=== PATIENT | female | born 1970 | race Caucasian/White ===

== ENCOUNTER 2020-01-31 13:24 | Emergency (ER) | payer OTHER, SELFPAY ==
[2020-01-31 14:53] VITALS: BP 118/72; PULSE 80; RESP 18; TEMP 36.1; O2SAT 99; BMI 43.9
--- NOTE | 2020-01-31 16:04 | ED.SKABFB ---
HPI - Skin/Abscess/Foreign Bdy General Chief complaint: Skin/Abscess/Foreign Body Stated complaint: lumps Time Seen by Provider: 01/31/20 15:27 Source: patient Mode of arrival: ambulatory Limitations: no limitations History of Present Illness HPI narrative: 50 y/o female with history of asthma, hypothyroidism, chronic back pain, s/p cervical disc fusion, hx abscess 2/2 MRSA presents with tender boil to upper right buttocks that started 4 days ago. She also has several small ones in her right underarm. No fever or chills at home. She was able to express a small amount of pus out of boil on her buttocks. She has been using warm compresses. MD complaint: abscess/boil Onset (ago): day(s) (4) Tetanus up to date: yes Location: RUE and buttocks Severity: moderate Quality: aching Pain Consistency: constant Relieving factors: none Exacerbating factors: palpation and movement Context: none Associated symptoms: denies other symptoms Treatments prior to arrival: bandages and attempted to drain pus at home Related Data Previous Rx's Medication Instructions Recorded clindamycin HCl 300 mg PO Q6H #42 cap 01/31/20 Allergies Allergy/AdvReac Type Severity Reaction Status Date / Time celecoxib [Celebrex] Allergy Unknown Unknown Verified 01/31/20 14:51 gabapentin [GABAPENTIN] Allergy Unknown UNKNOWN Verified 01/31/20 14:51 oxaprozin Allergy Unknown Unknown Verified 01/31/20 14:51 Penicillins [PENICILLINS] Allergy Unknown UNKNOWN Verified 01/31/20 14:51 Sulfa (Sulfonamide Allergy Unknown Unknown Verified 01/31/20 14:51 Antibiotics) Codeine Phosphate Allergy Unknown Unknown Uncoded 01/31/20 14:51 Review of Systems Review of Systems: Constitutional: No Fever, No Chills Cardiovascular: No Chest Pain, No SOB Respiratory: No Cough, No Sputum, No Wheezing, No dyspnea Gastrointestinal: + Nausea, No Vomiting, No Diarrhea, No abdominal Pain Musculoskeletal: No joint pain, No Myalgias Skin: + Skin Lesions, No rash Neuro:+ Headache Heme/Lymph: No Bruising, No Lymphadenopathy PMFSH Past Medical History Attestation statement: The following information was validated with the patient. Medical History Carpal tunnel syndrome on both sides Cervical vertebral fusion Hypothyroid Surgical History (Updated 01/31/20 @ 14:56 by Lila Nagy) History of bladder suspension procedure Social History Social History Smoked in Last 30 Days: No Substance Use Type: Marijuana Advance Directives: No Advance Directives Information Provided: No Physical Exam Vital Signs: Vital Signs: Last Vital Signs Temp 96.9 F 01/31/20 14:53 Pulse 80 01/31/20 14:53 Resp 18 01/31/20 14:53 BP 118/72 01/31/20 14:53 Pulse Ox 99 01/31/20 14:53 Body Mass Index 43.9 Appearance: Alert. Oriented X3. No acute distress. HEENT: normal inspection Respiratory: No respiratory distress. Skin: Skin warm and dry. Normal skin color. Normal skin turgor. No rashes. Extremities: right axilla with multiple small tender nodules, firm and erythematous, <1cm. no flutuance. Back: upper right buttock with 6cm area of erythema, warmth and tenderness, central pustule wtih fluctuance. Neuro: Oriented X 3. Non-focal Course Course Course Narrative: 50 y/o female with abscess to right buttock. Hx MRSA, will treat as such. right axilary area consistent with early small abscesses vs folliculitis, no need to I&D at this time. Will start on abx and have her come back in to 2 days for re-evaluation. Procedures Abscess I/D Site: other (right buttock) Side (if applicable): right Local Anesthetic: lidocaine 2% Technique: incised with blade Sent for culture/gram staining?: No Irrigation: Yes Packing used?: iodoform Complications: pain Discharge Plan Discharge Clinical Impression: Cellulitis Qualifiers: Site of cellulitis: buttock Qualified Code(s): L03.317 - Cellulitis of buttock Abscess of skin or subcutaneous tissue Qualifiers: Site of cutaneous abscess: buttock Qualified Code(s): L02.31 - Cutaneous abscess of buttock Patient Disposition: Home, Self-Care Instructions: Abscess Follow-up (ED), Abscess Incision and Drainage (DC) Additional Instructions: Come back to the ER in 2 day for re-evaluation of your would and for packing removal. Take Motrin and/or Tylenol as needed for pain. Use warm compresses several times per day. Prescriptions: New clindamycin HCl 300 mg capsule 300 mg PO Q6H Qty: 42 RF: 0
[2020-01-31] MEDS: Lidocaine HCl 2 % MPF 5 ML VIAL INFILTRATI (16:47)
== END 2020-01-31 16:53 | disposition home or self-care (01) ==
PROVIDERS: Emergency Provider Emergency Medicine Emergency Medical Services; PCP Internal Medicine
DX: L02.31 Cutaneous abscess of buttock (principal)
CPT/HCPCS: 10060; 99284

== ENCOUNTER 2020-02-02 08:28 | Emergency (ER) | payer OTHER, SELFPAY ==
[2020-02-02 08:40] VITALS: BP 131/89; PULSE 80; RESP 16; TEMP 36.8; O2SAT 96; BMI 42.0
--- NOTE | 2020-02-02 09:12 | ED_ITS ---
HPI - Recheck/Abnormal Lab/Rx General Chief Complaint: Wound/Laceration Stated Complaint: wound check Time Seen by Provider: 02/02/20 08:36 Source: patient Mode of arrival: ambulatory Limitations: no limitations History of Present Illness HPI narrative: 50-year-old female presenting to the ED for wound check after she was seen here on 01/31/2020 and had abscess I&D to right buttocks with packing placement placed on clindamycin due to allergic to penicillins. Reports still having mild pain although discharge is almost resolved. Denies any fevers, Chills, worsening pain, worsening swelling, worsening redness or worsening discharge. or any other symptoms complaints or concerns at this time. Reports she is currently taking the clindamycin as prescribed. Related Data Previous Rx's Medication Instructions Recorded clindamycin HCl 300 mg PO Q6H #42 cap 01/31/20 Allergies Allergy/AdvReac Type Severity Reaction Status Date / Time celecoxib [Celebrex] Allergy Unknown Unknown Verified 01/31/20 14:51 gabapentin [GABAPENTIN] Allergy Unknown UNKNOWN Verified 01/31/20 14:51 oxaprozin Allergy Unknown Unknown Verified 01/31/20 14:51 Penicillins [PENICILLINS] Allergy Unknown UNKNOWN Verified 01/31/20 14:51 Sulfa (Sulfonamide Allergy Unknown Unknown Verified 01/31/20 14:51 Antibiotics) Codeine Phosphate Allergy Unknown Unknown Uncoded 01/31/20 14:51 Review of Systems Review of Systems: Yes all other systems are reviewed and are negative PMF Past Medical History Attestation statement: The following information was validated with the patient. Medical History Carpal tunnel syndrome on both sides Cervical vertebral fusion Hypothyroid Surgical History History of bladder suspension procedure Social History Social History Substance Use Type: Marijuana Advance Directives: No Advance Directives Information Provided: No Physical Exam Vital Signs: Vital Signs: Last Vital Signs Temp 98.2 F 02/02/20 08:40 Pulse 80 02/02/20 08:40 Resp 16 02/02/20 08:40 BP 131/89 02/02/20 08:40 Pulse Ox 96 02/02/20 08:40 Body Mass Index 42.0 vital signs have been reviewed as normal and appeared to be correct. Blood pressure normal. Heart rate normal. Respiration rate normal. Temperature normal. Oxygen saturation normal. Appearance: Alert. Oriented X3. No acute distress. Head: Normal external exam. Normocephalic. Eyes: PERRLA. EOMI. Conjunctiva and sclera normal. Eyelids normal. ENT: Pharynx normal. Uvula midline. Moist mucous membranes. Neck: Normal inspection. Neck supple. FROM. No adenopathy. No meningeal signs. CVS: Normal heart rate and rhythm. Heart sound normal. No murmurs noted. Pulses normal throughout. Respiratory: No respiratory distress. Painless inspiration. Breath sounds normal. No wheezes/rales/rhonchi noted. Chest nontender. No accessory muscle usage noted or decreased air movement noted. Back: No CVA tenderness. Full range of motion noted. Skin: To right buttocks wound noted with packing in place with mild surrounding erythema at margins. Mild serosanguineous drainage. No fluctuance or streaking noted. Appear healing. Otherwise the rest of the Skin warm and dry. Normal skin color. Normal skin turgor. No rashes/lacerations noted. Extremities: Extremities exhibit normal range of motion. Extremities nontender. Neuro: Oriented X 3. No motor deficit. No sensory deficit. Reflexes normal. Course Course Course Narrative: Packing removed no signs of worsening infection. Patient is still taking antibiotics. Instructed to return if any new or worsening symptoms follow-up with primary care provider patient understand and agree with the plan MDM - Recheck/Abnormal Lab/Rx Medical Records Attestation: I reviewed the patient's medical records. Discharge Plan Discharge Clinical Impression: Wound check, abscess Patient Disposition: Home, Self-Care Instructions: Abscess Follow-up (ED) Prescriptions: No Action clindamycin HCl 300 mg capsule 300 mg PO Q6H Qty: 42 RF: 0 Referrals: Suzanne Owens MD [Primary Care Provider] - 2 days Discharge Date/Time: 02/02/20 09:32 Print Language: Mauritanian
== END 2020-02-02 09:32 | disposition home or self-care (01) ==
PROVIDERS: Emergency Provider Internal Medicine; PCP Internal Medicine
DX: L02.31 Cutaneous abscess of buttock (principal); Z79.899 Other long term (current) drug therapy
CPT/HCPCS: 99283

== ENCOUNTER → 2020-10-21 15:36 | Outpatient (BNVA) | payer OTHER, SELFPAY | PROVIDERS: PCP Internal Medicine; Visit Provider Anesthesiology | DX: M51.36 Other intervertebral disc degeneration, lumbar region (principal); M47.16 Other spondylosis with myelopathy, lumbar region; M47.817 Spondylosis without myelopathy or radiculopathy, lumbosacral region; M46.1 Sacroiliitis, not elsewhere classified; M53.3 Sacrococcygeal disorders, not elsewhere classified | CPT/HCPCS: 99212 ==

== ENCOUNTER 2020-12-08 06:31 | Outpatient (REF) | payer OTHER, SELFPAY ==
--- NOTE | ~2020-12-08 | FL_ITS ---
EXAMINATION: XR FLUOROSCOPY WITH IMAGES CLINICAL INFORMATION: Sacrococcygeal disorder. COMPARISON: Fluoroscopy dated 10/22/2019. TECHNIQUE: Fluoroscopy performed by Dr. Michel Goodman. Fluoroscopy time: 0.1 minutes DAP: 1.80 Gycm2 Dose: 6.61 mGy Images: 2 FINDINGS: The submitted images show a needle tip situated in the vicinity of the inferior aspect of the right sacroiliac joint. There is contrast puddling adjacent to the needle tip. FL/FL guidance in treatment room IMPRESSION: Intraoperative fluoroscopy is provided during right sacroiliac joint pain management procedure. Please see Operative Report for full procedural details.
== END 2020-12-08 06:32 | disposition home or self-care (01) ==
LOC: HO.RADIR 06:31
PROVIDERS: Visit Provider Anesthesiology
DX: M51.36 Other intervertebral disc degeneration, lumbar region (principal); M53.3 Sacrococcygeal disorders, not elsewhere classified; M46.1 Sacroiliitis, not elsewhere classified; M47.16 Other spondylosis with myelopathy, lumbar region; M47.816 Spondylosis without myelopathy or radiculopathy, lumbar region
CPT/HCPCS: 27096; J3300; Q9967

== ENCOUNTER → 2020-12-17 09:00 | Outpatient (BNVA) | payer OTHER, SELFPAY | PROVIDERS: PCP Internal Medicine; Visit Provider Anesthesiology | DX: M51.36 Other intervertebral disc degeneration, lumbar region (principal); M47.16 Other spondylosis with myelopathy, lumbar region; M47.817 Spondylosis without myelopathy or radiculopathy, lumbosacral region; M46.1 Sacroiliitis, not elsewhere classified; M53.3 Sacrococcygeal disorders, not elsewhere classified; M96.1 Postlaminectomy syndrome, not elsewhere classified | CPT/HCPCS: 99212 ==

== ENCOUNTER 2024-09-09 13:28 | Emergency (ER) | payer OTHER, SELFPAY ==
--- NOTE | ~2024-09-09 | XR_ITS ---
EXAMINATION: XR CHEST CLINICAL INFORMATION: chest pain COMPARISON: None available. TECHNIQUE: 2 views of the chest were obtained. FINDINGS: The cardiac, hilar, and mediastinal contours are normal. The lungs are clear bilaterally. There is no pneumothorax or pleural effusion. There is no focal osseous or soft tissue abnormality. Cervical fusion device incidentally noted. XR/XR chest 2V IMPRESSION: No active pulmonary disease. Electronically signed by: Anthony Garber MD 09/09/2024 02:11 PM EDT
--- NOTE | 2024-09-09 13:29 | ECG_ITS ---
Test Reason : cp Blood Pressure : */* mmHG Vent. Rate : 68 BPM Atrial Rate : 68 BPM P-R Int : 136 ms QRS Dur : 80 ms QT Int : 400 ms P-R-T Axes : 19 -12 8 degrees QTcB Int : 425 ms Normal sinus rhythm Minimal voltage criteria for LVH, may be normal variant ( R in aVL ) Cannot rule out Anterior infarct , age undetermined Abnormal ECG No previous ECGs available Referred By: Generic ED Physician Electronically Signed By: Jesús Wright
[2024-09-09 13:38] VITALS: BP 138/83; PULSE 68; RESP 16; TEMP 36.6; O2SAT 97; BMI 39.1
--- NOTE | 2024-09-09 13:39 | ED.CHESTPAIN ---
HPI - Chest Pain General Chief Complaint: Chest Pain Stated Complaint: Chest pain , pain L arm Time Seen by Provider: 09/09/24 14:47 Source: patient Mode of arrival: ambulatory Limitations: no limitations History of Present Illness ED Provider: Steven Salmon PA-C HPI narrative: 54 yo female with history of hypothyroidism, sacroilitis, who presents to the ER for evaluation of left arm pain that started yesterday and traveled proximally and now is in her left chest. She reports the pain started yesterday when she was sitting and relaxing. The pain is described as sharp and cramping. It is constant. It starts in the fingers and radiates up the arm. Denies numbness, tingling or weakness in the arm. The chest pain is described as heaviness and it does not radiate. it started earlier today when she was out shopping. no associated SOB, nausea, abdominal pain or diaphoresis. she does not smoke. MD complaint: chest pain Onset (ago): day(s) (1) Timing of current episode: constant Prior episodes: No Onset: during rest Pain location: left chest Pain radiation: left arm Severity: moderate Pain scale (0-10): 8 Quality: sharp Relieving factors: nothing Exacerbating factors: nothing Treatment prior to arrival: none Risk Factors Coronary artery disease risk factors: none Thoracic aortic dissection risk factors: none Related Data Previous Rx's ?Medication ?Instructions ?Recorded clindamycin HCl 300 mg capsule 300 mg PO Q6H #42 caps 01/31/20 cyclobenzaprine 10 mg tablet 10 mg PO TID PRN muscle spasm #7 09/09/24 tabs Allergies Allergy/AdvReac Type Severity Reaction Status Date / Time celecoxib (Celebrex) Allergy Unknown Unknown Verified 09/09/24 13:40 gabapentin (GABAPENTIN) Allergy Unknown UNKNOWN Verified 09/09/24 13:40 oxaprozin Allergy Unknown Unknown Verified 09/09/24 13:40 Penicillins (PENICILLINS) Allergy Unknown UNKNOWN Verified 09/09/24 13:40 Sulfa (Sulfonamide Allergy Unknown Unknown Verified 09/09/24 13:40 Antibiotics) Codeine Phosphate Allergy Unknown Unknown Uncoded 01/31/20 14:51 steroids AdvReac Unknown face Uncoded 12/08/20 14:18 redness/hot Review of Systems Review of Systems: Yes all other systems are reviewed and are negative PMFSH Past Medical History Medical History (Updated 09/09/24 @ 15:17 by NIYA Sinha) Postlaminectomy syndrome, lumbar Sacroiliac joint dysfunction of right side Sacroiliitis Facet joint disease of lumbosacral region Spondylosis, lumbar, with myelopathy Disc degeneration, lumbar Hypothyroid Cervical vertebral fusion Carpal tunnel syndrome on both sides Surgical History History of bladder suspension procedure Social History Social History Smoked in Last 30 Days: No Use of substances other than those prescribed or required for medical reasons: No Substance Use Type: Marijuana Advance Directives: No Advance Directives Information Provided: Yes Do you have a plan to hurt others: No Plan Patient : No Physical Exam Vital Signs: Vital Signs: Last Vital Signs Temp 98.2 F 09/09/24 16:28 Pulse 61 09/09/24 16:28 Resp 18 09/09/24 16:28 BP 120/64 09/09/24 15:51 Pulse Ox 99 09/09/24 16:28 O2 Del Method Room Air 09/09/24 16:28 BMI result Body Mass Index 39.1 Appearance: Alert. Oriented X3. No acute distress. Head: normocephalic, atraumatic. Eyes: Pupils equal, round and reactive to light. ENT: Pharynx normal. No tonsillar swelling or exudate. Neck: Normal inspection. Neck supple. CVS: Normal heart rate and rhythm. Pulses normal. Left anterior chest wall is tender to palpation Respiratory: No respiratory distress. Breath sounds normal. Abdomen: Soft and nontender. +BS x4 Skin: Skin warm and dry. Normal skin color. Normal skin turgor. No rashes. Extremities: No lower extremity edema. No joint swelling. Normal inspection of bilateral upper extremities. Diffuse soft tissue tenderness of the left forearm and left upper arm. Neurovascularly intact distally. Full range of motion of the left wrist, left elbow and left shoulder. No joint swelling. Neuro/psych: Oriented X 3. No motor deficit. No sensory deficit. CN II-XII intact. Normal speech and cognition. Course Course Course Narrative: This is an RME performed by Liu Vincent CNP: Additional HPI, ROS, PE not included below will be deferred to primary provider. Patient is a 54-year-old female who presents emergency department for evaluation, Reports onset last night of atraumatic pain to her left lower arm persistent throughout the evening onset while at rest, and states today 30 minutes prior to arrival developed left anterior chest pain, denies SOB. Plan: Serum labs, ECG, CXR Medications Administered Discontinued Medications Generic Name Dose Route Start Last Admin Trade Name Norberto PRN Reason Stop Dose Admin Acetaminophen 975 mg 09/09/24 15:30 09/09/24 15:47 Acetaminophen 325 Mg Tablet PO 09/09/24 15:31 975 mg ONCE ONE Administration Oxycodone HCl 5 mg 09/09/24 15:30 09/09/24 15:47 Oxycodone Hcl Immed Release 5 Mg Tablet PO 09/09/24 15:31 5 mg ONCE ONE Administration Medical Decision Making Medical Decision Making [facility] Narrative: 54 yo female presents to the ER for evaluation of left arm pain radiating up to her left chest. chest is tender to palpation. left arm is normal labs are reassuring. cxr is normal ekg is normal troponin negative x2 given po tylenol and oxycodone with improvement in her pain low suspicion for cardiac etiology as pain started in the fingers and radiated proximally. she does have a history of fibromyalgia. could be related to this. at this time she is stable for discharge home with nsaids, tylenol, and prn flexeril. encouraged f/u with PCP. return precautions were discussed Differential Diagnosis Differential Diagnoses: The differential diagnosis associated with the presentation includes Cervical radiculopathy, ACS, costochondritis, muscle spasm, low suspicion for PE Admission/Observation Consideration of admission/observation: Escalation of care including admission/observation considered Lab Data [facility] Lab Attestation statement: I reviewed the patient's lab results. trop negative x2, no electrolyte abnormalities 09/09/24 13:52 09/09/24 13:52 Labs: Lab Results 09/09/24 09/09/24 Range/Units 13:52 16:23 WBC 5.7 (4.8-10.8) X10*3/uL RBC 4.34 (4.20-5.50) X10*6/uL Hgb 14.1 (12.0-16.0) g/dl Hct 39.7 (37.0-47.0) % MCV 91.5 (80.0-98.0) fL MCH 32.5 (27.0-33.0) pg MCHC 35.5 H (31.0-35.0) g/dl RDW 12.1 (11.0-16.0) % Plt Count 184 (160-400) X10*3/uL MPV 9.2 L (9.4-12.3) fL Immature Gran % (Auto) 0.4 (0.0-0.4) % Neut % (Auto) 61.9 (45-73) % Lymph % (Auto) 28.4 (20-40) % Harris % (Auto) 8.8 (2-11) % Eos % (Auto) 0.0 (0-4) % Baso % (Auto) 0.5 (0-2) % Lymph # (Auto) 1.6 (1.2-4.9) X10*3/uL Harris # (Auto) 0.5 (0.1-1.2) X10*3/uL Eos # (Auto) 0.0 (0.0-0.4) X10*3/uL Baso # (Auto) 0.0 (0.0-0.2) X10*3/uL Abs Immat Gran (auto) 0.02 (0.00-0.03) X10*3/uL Absolute Neuts (auto) 3.5 (2.0-8.3) x10*3/uL Absolute Nucleated RBC 0.000 (0.0-0.012) X10*3/uL Nucleated RBC % (auto) 0.0 (0.0-0.2) /100WBC Sodium 140 (135-145) mmol/L Potassium 4.3 (3.3-5.1) mmol/L Chloride 105 (96-108) mmol/L Carbon Dioxide 27 (22-29) mmol/L Anion Gap 12 (12-20) BUN 11 (9-16) mg/dL Creatinine 0.84 (0.5-1.4) mg/dL Estim Creat Clear Calc 78.7 Estimated GFR > 60 Random Glucose 87 (60-115) mg/dL Calcium 9.3 (8.4-10.2) mg/dL Total Bilirubin 0.6 (0.0-1.0) mg/dL AST 33 H (5-31) U/L ALT 19 (0-31) U/L Alkaline Phosphatase 75 (39-117) U/L Troponin I High Sens < 2.7 < 2.7 (<3.5-17.0) ng/L Total Protein 6.7 (6.5-8.0) g/dL Albumin 4.0 (3.5-5.0) g/dL Urine Color Yellow Urine Appearance Clear Urine pH 5.5 (5.0-9.0) Ur Specific [place] 1.020 (1.005-1.025) Urine Protein Negative (Neg-Trace) mg/dL Urine Glucose (UA) Negative (Negative) mg/dL Urine Ketones Trace (Negative) mg/dL Urine Blood Moderate (2+) H (Negative) Urine Nitrite Negative (Negative) Ur Leukocyte Esterase Moderate (2+) H (Negative) Urine RBC 11-20 H (0-2) /HPF Urine WBC 6-10 H (0-5) /HPF Ur Squamous Epith Cells 6-10 (0-2) /HPF Urine Bacteria 1+ (None Seen) Hyaline Casts 0-2 (0-2) /LPF Independent Interpretation I performed an independent interpretation of an: EKG and Plain X-Ray Interpretation: EKG with normal sinus rhythm, ventricular rate is normal at 68, normal QTC, normal VA interval, no ST segment elevations or depressions Chest x-ray is clear without any focal infiltrate or effusion Radiology Impression Discussion of test interpretation with radiology: I have reviewed the radiologist's reading. Independent Historian Clinical information obtained from an independent historian. History obtained from or confirmed by: Friend External Record Review External record reviewed: Prior outpatient labs Tests considered The following testing was considered but not selected: CT cervial spine considered, no emergent need today Prescription Management I considered prescription management with: Pain Medication Chronic Conditions Patient?s care impacted by: Other (fibromyalgia) Scores Heart Score History: -0- slightly suspicious ECG: -0- normal Age: -1- >45 - <65 Risk factory: -0- no risk factors known Troponin: -0- < or = normal limit Score: 1 Risk: 1.7% Critical Care Time Critical Care Time Critical Care Time: No Discharge Plan Discharge Clinical Impression: Atypical chest pain Patient Disposition: Home, Self-Care Instructions: Noncardiac Chest Pain (ED) Additional Instructions: Your lab workup today, chest x-ray, EKG were all reassuring. Your pain is likely muscular. Take the prescribed muscle relaxer as needed for muscle spasm and pain. Recommend ibuprofen 600 mg every 6-8 hours, take this with food. Follow-up with your primary care doctor. If you develop new or worsening symptoms call 911 or come back to the ER for further evaluation. Prescriptions: New cyclobenzaprine 10 mg tablet 10 mg PO TID PRN (Reason: muscle spasm) Qty: 7 0RF No Action clindamycin HCl 300 mg capsule 300 mg PO Q6H Qty: 42 0RF Print Language: Uzbek
[2024-09-09 14:01] LABS: MANUAL DIFF FLAG NO
[2024-09-09 14:04] LABS: Appearance Urine Clear; Glucose Urine UA Negative (Negative); PH 5.5 (5.0-9.0); Specific Gravity - Urine 1.020 (1.005-1.025); UMIC TRIGGER UACC YES
[2024-09-09 14:06] LABS: Hematocrit 39.7 % (37.0-47.0); Hemoglobin 14.1 g/dl (12.0-16.0); Imm Gran Abs Auto 0.02 X10*3/uL (0.00-0.03); Imm Gran Pct Auto 0.4 % (0.0-0.4); Lymphocytes Absolute Auto 1.6 X10*3/uL (1.2-4.9); Mean Corpuscular HGB Conc 35.5 g/dl (31.0-35.0); Mean Corpuscular Hemoglobin 32.5 pg (27.0-33.0); Mean Corpuscular Volume 91.5 fL (80.0-98.0); NRBC Abs Auto 0.000 X10*3/uL (0.0-0.012); NRBC Pct Auto 0.0 /100WBC (0.0-0.2); Platelet Count 184 X10*3/uL (160-400); Red Blood Count 4.34 X10*6/uL (4.20-5.50); White Blood Count 5.7 X10*3/uL (4.8-10.8)
[2024-09-09 14:08] LABS: UACC Culture Trigger YES
[2024-09-09 14:23] LABS: Alanine Aminotransferase 19 U/L (0-31); Albumin Level 4.0 g/dL (3.5-5.0); Alkaline Phosphatase 75 U/L (39-117); Anion Gap 12 (12-20); Aspartate Amino Transferase 33 U/L (5-31); Blood Urea Nitrogen 11 mg/dL (9-16); Calcium 9.3 mg/dL (8.4-10.2); Carbon Dioxide 27 mmol/L (22-29); Chloride 105 mmol/L (96-108); Creatinine Clr Calc Pharmacy 78.7; Estimated Glomerular Filt Rate > 60; Potassium 4.3 mmol/L (3.3-5.1); Sodium 140 mmol/L (135-145); Total Protein 6.7 g/dL (6.5-8.0)
[2024-09-09 14:28] LABS: Troponin-I High Sensitivity < 2.7 ng/L (<3.5-17.0)
--- OUTSIDE RECORDS SUMMARY | 2024-09-09 14:45 | XMS_ITS | Clinical Summary ---
Author Organization Patient Business Ser [facility] [place] Address [address] [place] [address] Care Team Providers Care Monitoring Specialist Name Role Phone Suzanne Owens MD Primary Care Provider [phone] Allergies Active Allergy Reactions Criticality Noted Date Comments Celecoxib Medium 11/10/2017 Other Reaction(s): Other (See Comments) Codeine Medium 11/10/2017 Other Reaction(s): Other (See Comments) Oxaprozin Medium 03/09/2010 Other Reaction(s): Other (See Comments) Sulfamethoxazole-Trimethopr im 11/10/2017 Medications levothyroxine (SYNTHROID, LEVOTHROID) 137 mcg tablet Take 1 tablet (137 mcg total) by mouth 1 (one) time each day. 4 Active multivit-min/iron /folic acid/K (ADULTS MULTIVITAMIN ORAL) Take 1 tablet by mouth 1 (one) time each day. 4 Active miscellaneous medical supply misc SPACER/AERO-H OLD CHAMBER MASK MISC 1 Kit by Does not apply route daily. To use with proair as directed 4 Active ciprofloxacin (CILOXAN) 0.3 % ophthalmic solution On day 1-2: Apply 1 drop to effected eye every two hours. On days 3-7: Apply 1 drop to effected eye every 4 hours. 4 Active albuterol HFA (Ventolin HFA) 90 mcg/actuation inhaler if needed. INHALE 2 PUFFS INTO THE LUNGS EVERY 6 HOURS NEEDED FOR COUGH OR WHEEZING. 4 Active prednisoLONE acetate (PRED FORTE) 1 % ophthalmic suspension INSTILL 1 DROP INTO RIGHT EYE FOUR TIMES A DAY SHAKE WELL 3 Active cholecalciferol (VITAMIN D-3) 50 mcg (2,000 unit) capsule Take 1 capsule (2,000 Units total) by mouth 1 (one) time each day. 3 Active mupirocin (BACTROBAN) 2 % ointment Apply locally twice daily 3 Active ibuprofen (ADVIL,MOTRIN) 600 mg tablet Take 1 Tab by mouth every 6 hours as needed for Pain for up to 30 days. 9 Active citalopram (CeleXA) 40 mg tablet TAKE 1 TABLET BY MOUTH EVERY DAY 90 tablet 1 5 Active Vitamin B-12 500 mcg tablet TAKE 1 TABLET BY MOUTH EVERY DAY 90 tablet 3 5 Active docusate sodium (COLACE) 100 mg capsule Take 1 capsule (100 mg total) by mouth every 12 (twelve) hours. 60 capsule 5 5 Active levothyroxine (SYNTHROID, LEVOTHROID) 125 mcg tablet Take 1 tablet (125 mcg total) by mouth 1 (one) time each day. 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 Knight was seen as a consult when she was an inpatient at [facility] in April for dizziness. She still has episodes of dizziness and is scheduled to see ENT next week. She is here for follow-up of the C1 intramedullary lesion that was found on imaging at the time. She denies pain, paresthesias or weakness of her extremities. Her exam is intact. The new cervical spine MRI with and without gadolinium from 10/11/2022 shows a stable 7 x 8 mm lesion behind C1 or at the C1-2 junction which has partial calcifications, rim enhancement and edema on T2 and STIR sequences compared to the study from 04/06/2022. He also has evidence of a C5-6 ACDF with plating by Dr. Guerrero. The patient states she was always told that this was a tumor and and going through the history, there are periodic images dating all the way back to 2007. 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 All of the others shows relative stability of the lesion but changes in the degree of edema. I reviewed all of these images myself and, particularly on the T2 and STIR images, this looks to me more like a cavernous malformation. There is no acute hemorrhage but we discussed that the treatment would be radiosurgery not resection if there was a hemorrhage. I do not think this is responsible for her dizziness and encouraged her to keep her appointment with ENT. We have 15 years worth of imaging showing stability of this lesion so I will not order routine surveillance scans. Cervical spondylosis 11/24/2017 Overview (02/15/2024): Hx fusion DDD (degenerative disc disease), lumbar 11/25/19 18 Hydradenitis 11/24/2017 Hyperlipidemia 11/24/2017 Hypothyroidism 11/24/2017 Overview (02/15/2024): endo at [facility] Insomnia 11/24/2017 Snoring 11/24/2017 Overview (02/15/2024): Sleep Study negative for JAH 10/31/17 Mild persistent asthma 11/10/2017 Urinary incontinence 06/01/2016 Morbid obesity with BMI of 4 0.0-44.9, adult ([facility] V24, [facility] V28) Encounters Date Type Department Care Team Description 06/24/2024 9:30 AM EDT Office Visit Internal Medicine - [address] [place] [address] Suzanne Owens MD Hematuria, unspecified type (Primary Dx); Screening for colorectal cancer; Hypothyroidism, unspecified type from Last 3 Months Immunizations Name Administration Dates Next Due Tdap Tetanus diptheria acell ular pertussis (Boostrix; Adacel) 7yo and older 04/09/2014 Surgical History Surgery Date Site/Laterality Comments NECK SURGERY PROCEDURE: HISTORICAL NECK SURGERY; COMMENT: cervical vertebral fusion ? C5-C6 Dr. Guerrero CARPAL TUNNEL RELEASE Bilateral PROCEDURE: HISTORICAL CARPAL TUNNEL REL FOOT SURGERY Bilateral PROCEDURE: HISTORICAL FOOT SURGERY; COMMENT: heel spurs - Dr. Zaidi TONSILLECTOMY PROCEDURE: HISTORICAL TONSILLECTOMY; COMMENT: around age 11 OTHER SURGICAL HISTORY PROCEDURE: WA ANES IPER LOWER ABD W/LAPS ABDOMINOPRNL RESCJ; COMMENT: right fallopian tube removed due ectopic and part left fallopian tube removed due ectopic OTHER SURGICAL HISTORY 03/2018 PROCEDURE: [place] HYSTEROSCOPY ENDOMETRIAL ABLATION; COMMENT: Dr. Fox COLONOSCOPY 2018 PROCEDURE: HISTORICAL COLONOSCOPY; COMMENT: rpt 5 yrs Medical History Medical History Date Comments Bronchitis 11/10/2017 DX:Bronchitis Cervical spine tumor 11/24/2017 DX:Cervical spine tumor; COMMENT: Medullary junction cervical tumor Cervical spondylosis 11/24/2017 DX:Cervical spondylosis; COMMENT: Hx fusion DDD (degenerative disc disea se), lumbar 11/24/2017 DX:DDD (degenerative disc di sease), lumbar Hydradenitis 11/24/2017 DX:Hydradenitis Hyperlipidemia 11/24/2017 DX:Hyperlipidemi a Insomnia 11/24/2017 DX:Insomnia Mild persistent asthma 11/10/2017 DX:Mild p ersistent asthma Morbid obesity with BMI of 4 0.0-44.9, adult (CMS/HCC V24, CMS/HCC V28) 11/24/2017 DX:Morbid obesity wit h BMI of 40.0-44.9, adult ([facility]) Snoring 11/24/2017 DX:Snoring; COMM ENT: Sleep Study negative for JAH 10/31/17 Urinary incontinence 06/01/2016 DX:Urinary incontinence Hypothyroidism 11/24/2017 DX:Hypothyroidis m; COMMENT: endo at [facility] Anxiety and depression DX:Anxiet y and depression Abdominal hernia DX:Abdominal he rnia Family History Medical History Relation Name Comments Colon cancer Maternal Grandmother Colon cancer Mother Colon cancer Mother's side maternal great grandmother Breast cancer Neg Hx Relation Name Status Comments Father Alive Maternal Grandmother Mother Mother's side Social History Tobacco Use Types Packs/Day Years Used Date Smoking Tobacco: Never Smokeless Tobacco: Never Tobacco Cessation:Counseling Given: Not Answered Alcohol Use Standard Drinks/Week Comments Yes 0 (1 standard drink = 0.6 oz pur e alcohol) Housing Instability Answer Date Recorde d Are you worried that in the next 2 months you may not have stable housing? No 06/23/2024 Food Access & Nutrition Answer Date Rec orded Do you have access to a vari ety of food including fruits and vegetables? Yes 06/23/2024 Access to Healthcare Answer Date Record ed Within the last 3 months, ho w many times did you visit the emergency department for your medical care? 1 06/23/2024 Health Literacy Answer Date Recorded How often do you need to hav e someone help you when you read instructions, pamphlets, or other written material from your doctor or pharmacy? Never 06/23/2024 Caregiver: How often do you need to have someone help you when you read instructions, pamphlets, or other written material from your doctor or pharmacy? Not on file 06/23/2024 Financial Risk Answer Date Recorded How hard is it for you to pa y for the very basics like food, housing, medical care, and air conditioning / heating? Somewhat hard 06/23/2024 Transportation Answer Date Recorded Has the lack of transportati on kept you from meetings, work, or from getting things needed for daily living? No Has the lack of transportati on kept you from medical appointments or from getting medications? No 06/23/2024 Social Isolation Answer Date Recorded How often do you feel lonely or isolated from th ose around you? Never 06/23/2024 Food Risk Answer Date Recorded Within the past 12 months we worried whether our food would run out before we got money to buy more. Often true 025 Within the past 12 months th e food we bought just didn't last and we didn't have money to get more. Sometimes true 06/23/2024 Dependent Care Answer Date Recorded Do you need help finding or paying for care for your loved ones. For example, child development consultant or elderly care for an older adult? No 06/23/2024 Education Answer Date Recorded Do you think completing more education or training, like finishing a GED, going to college, or learning a trade, would be helpful for you? N/A 06/23/2024 Employment and Income Answer Date Recor ded During the last four weeks, have you been actively looking for work? Patient declined 06/23/2024 Living Situation Answer Date Recorded What is your living situation? 0 06/23/2024 Comments Unknown Sex and Gender Information Value Date Recorded Sex Assigned at Not on file Legal Sex Female 4:11 PM EDT Gender Identity Not on file Sexual Orientation Not on file Obstetrics History Last Filed Vital Signs Vital Sign Reading Time Taken Comments Blood Pressure 108/76 06/24/2024 9:27 AM EDT Pulse 75 06/24/2024 9:27 AM EDT Temperature 36.5 C (97.7 F) 06/24/2024 9:27 AM EDT Respiratory Rate 18 06/05/2024 12:25 PM EDT Oxygen Saturation 98% 06/24/2024 9:27 AM EDT Inhaled Oxygen Concentration - - Weight 90.7 kg (200 lb) 06/24/2024 9:27 AM EDT Height 152.4 cm (5') 06/05/2024 10:20 AM EDT Body Mass Index 39.06 06/05/2024 10:20 AM EDT Plan of Treatment Upcoming Encounters Date Type Department Care Team (Late st Contact Info) Description 09/13/2024 3:30 PM EDT Consult Gastroenterology - [place] [address] [phone] Felix Samson MD [address] [address] 11/13/2024 9:00 AM EDT Office Visit Internal Medicine [facility] [address] [phone] Suzanne Owens MD [address] [phone] Health Maintenance Due Date Last Done Comments Hepatitis B Vaccines (1 of 3 - 19+ 3-dose series) 01/03/1991 Pneumococcal Vaccine: 50+ Years (1 of 2 - PCV) 01/03/1991 Pneumococcal Vaccine: Pediatrics (0 to 5 Years) and At-Risk Patients (6 to 49 Years) (1 of 2 - PCV) 01/03/1991 HIV Screening 05/24/2021 Hepatitis C Screening 05/24/2021 Zoster Vaccines (1 of 2) 01/03/2022 COVID-19 Vaccine (1 - 2023-2 5 season) 2023 DTaP,Tdap,and Td Vaccines (2 - Td or Tdap) 04/09/2024 04/09/2014 Breast Cancer Screening 06/13/2024 06/14/19, 05/12/2022, 01/10/2018 Influenza Vaccine (#1) 2024 Colorectal Cancer Screening: Colonoscopy 12/02/2024 12/03/2019 Depression Screening 06/17/2025 06/17/2024, 12/21/2023 Social Influencers of Health Screening 06/23/2025 06/23/2024 Cervical Cancer Screening: HPV 08/13/2026 08/13/2021 Cholesterol Screening (Lipid Panel) 12/31/2028 01/01/2024, 01/01/2024 HIB Vaccines Aged Out No longer eligi ble based on patient's age to complete this topic HPV Vaccines Aged Out No longer eligi ble based on patient's age to complete this topic Hepatitis A Vaccines Aged Out No long er eligible based on patient's age to complete this topic IPV Vaccines Aged Out No longer eligi ble based on patient's age to complete this topic MMR Vaccines Aged Out No longer eligi ble based on patient's age to complete this topic Meningococcal ACWY Vaccine Aged Out N o longer eligible based on patient's age to complete this topic Meningococcal B Vaccine Aged Out No l onger eligible based on patient's age to complete this topic RSV Immunization Patients Under 20 months Aged Out No longer eligible b ased on patient's age to complete this topic Varicella Vaccines Aged Out No longer eligible based on patient's age to complete this topic Procedures Procedure Name Priority Date/Time Associated Diagnosis Comments TRIIODOTHYRONINE FREE Routine 06/24/2024 10:24 AM EDT Hypothyroidism, unspecified type FREE THYROXINE WITH REFLEX TO FREE TRIIODOTHYRONINE Routine 06/24/2024 10:24 AM EDT Hypothyroidism, unspecified type DIAZ URINE CULTURE TUBE Routine 06/25/19 25 10:24 AM EDT Urinary incontinence, unspecified type Abdominal hernia Cervical spine tumor Cervical spondylosis Morbid obesity with BMI of 40.0-44.9, adult (CMS/HCC V24, CMS/HCC V28) Hyperlipidemia, unspecified hyperlipidemia type Hypothyroidism, unspecified type Anxiety and depression Insomnia, unspecified type Osteoarthritis of carpometacarpal (CMC) joints of both thumbs, unspecified osteoarthritis type Hydradenitis Degeneration of intervertebral disc of lumbar region, unspecified whether pain present Mild persistent asthma Vertigo Snoring Cavernous malformation Abscess URINALYSIS WITH REFLEX MICROSCOPIC AND CULTURE Routine 06/24/2024 10:24 AM EDT Urinary incontinence, unspecified type Abdominal hernia Cervical spine tumor Cervical spondylosis Morbid obesity with BMI of 40.0-44.9, adult ([facility] V24, [facility] V28) Hyperlipidemia, unspecified hyperlipidemia type Hypothyroidism, unspecified type Anxiety and depression Insomnia, unspecified type Osteoarthritis of carpometacarpal (CMC) joints of both thumbs, unspecified osteoarthritis type Hydradenitis Degeneration of intervertebral disc of lumbar region, unspecified whether pain present Mild persistent asthma Vertigo Snoring Cavernous malformation Abscess THYROID STIMULATING HORMONE WITH REFLEX TO FREE T4 AND FREE T3 Routine 06/24/2024 10:24 AM EDT Hypothyroidism, unspecified type URINALYSIS WITH REFLEX MICROSCOPIC AND CULTURE Routine 06/24/2024 10:24 AM EDT Urinary incontinence, unspecified type Abdominal hernia Cervical spine tumor Cervical spondylosis Morbid obesity with BMI of 40.0-44.9, adult ([facility] V24, [facility] V28) Hyperlipidemia, unspecified hyperlipidemia type Hypothyroidism, unspecified type Anxiety and depression Insomnia, unspecified type Osteoarthritis of carpometacarpal (CMC) joints of both thumbs, unspecified osteoarthritis type Hydradenitis Degeneration of intervertebral disc of lumbar region, unspecified whether pain present Mild persistent asthma Vertigo Snoring Cavernous malformation Abscess CULTURE URINE Routine 06/24/2024 10:24 AM EDT Urinary incontinence, unspecified type Abdominal hernia Cervical spine tumor Cervical spondylosis Morbid obesity with BMI of 40.0-44.9, adult ([facility] V24, [facility] V28) Hyperlipidemia, unspecified hyperlipidemia type Hypothyroidism, unspecified type Anxiety and depression Insomnia, unspecified type Osteoarthritis of carpometacarpal (CMC) joints of both thumbs, unspecified osteoarthritis type Hydradenitis Degeneration of intervertebral disc of lumbar region, unspecified whether pain present Mild persistent asthma Vertigo Snoring Cavernous malformation Abscess LIPID PANEL Routine 01/01/2024 DEPRESSION SCREENING Routine 12/21/2023 DIAGNOSTIC MAMMOGRAPHY WITH CAD UNILATERAL Routine 06/13/2022 10:13 AM EDT Other abnormal and inconclusive findings on diagnostic imaging of breast HM HPV Routine 08/13/2021 COLONOSCOPY Routine 12/03/2019 from Last 3 Months or Most Recently Relevant to Health Maintenance Results * (ABNORMAL) Urinalysis with reflex microscopic and culture (06/24/2024 10:24 AM EDT) Specific [facility] Urine 1.019 1.003 - 1.030 LAB URINALYSIS - AUTOMATED METHOD 06/24/2024 12:11 PM [facility] pH, Urine 7.0 5.0 - 8.0 pH LAB URINALYSIS - AUTOMATED METHOD 06/24/2024 12:11 PM [facility] Leukocytes, Urine Trace(A) Negative LAB URINALYSIS - AUTOMATED METHOD 06/24/2024 12:11 PM [facility] Nitrite, Urine Negative Negative LAB URINALYSIS - AUTOMATED METHOD 06/24/2024 12:11 PM [facility] Protein, Urine Negative <=Trace mg/dL LAB URINALYSIS - AUTOMATED METHOD 06/24/2024 12:11 PM [facility] Glucose, Urine Negative Negative mg/dL LAB URINALYSIS - AUTOMATED METHOD 06/24/2024 12:11 PM [facility] Ketones, Urine Negative Negative mg/dL LAB URINALYSIS - AUTOMATED METHOD 06/24/2024 12:11 PM [facility] Urobilinogen , Urine 0.2 0.2 - 1.0 mg/dL LAB URINALYSIS - AUTOMATED METHOD 06/24/2024 12:11 PM [facility] Bilirubin, Urine Negative Negative LAB URINALYSIS - AUTOMATED METHOD 06/24/2024 12:11 PM [facility] Blood, Urine Moderate(A) Negative LAB URINALYSIS - AUTOMATED METHOD 06/24/2024 12:11 PM [facility] RBC, Urine 14.7(H) 0 - 4 /HPF LAB URINALYSIS - AUTOMATED METHOD 06/24/2024 12:11 PM [facility] WBC, Urine 1.6 0 - 4 /HPF LAB URINALYSIS - AUTOMATED METHOD 06/24/2024 12:11 PM [facility] Squamous Epithelial, Urine 61(H) 0 - 60 /LPF LAB URINALYSIS - AUTOMATED METHOD 06/24/2024 12:11 PM [facility] Bacteria, Urine Negative Negative /HPF LAB URINALYSIS - AUTOMATED METHOD 06/24/2024 12:11 PM [facility] Hyaline Casts, Urine 1.6 0 - 3 /LPF LAB URINALYSIS - AUTOMATED METHOD 06/24/2024 12:11 PM [facility] Urine Urine specimen obtained by clean catch procedure / Unknown Non-blood Collection / Unknown 06/24/2024 10:24 AM EDT 06/24/2024 10:24 AM EDT us Suzanne Owens MD LAB URINE ORDERABLES Final Res ult [facility] [address] [place] [address], * Diaz urine culture tube (06/24/2024 10:24 AM EDT) Extra Tube Hold for add-ons. 06/24/2024 12:01 PM EDT [facility] Comment:Auto resulted. Urine Urine specimen obtained by clean catch procedure / Unknown Non-blood Collection / Unknown 06/24/2024 10:24 AM EDT 06/24/2024 10:24 AM EDT Suzanne Owens MD LAB URINE ORDERABLES Final Res ult Performing Organization Address City/[facility]/ZIP Co de Phone Number [facility] [address] [place] [address], [place] [phone] * (ABNORMAL) Thyroid stimulating hormone with reflex to free t4 and free t3 (06/24/2024 10:24 AM EDT) TSH 0.12(L) 0.40 - 4.00 mcIU/mL LAB CHEMISTRY METHOD 06/24/2024 1:41 PM EDT [facility] Blood Venous blood specimen / Unknown Venipuncture / Unknown 06/24/2024 10:24 AM EDT 06/24/2024 10:24 AM EDT Suzanne Owens MD LAB BLOOD ORDERABLES Final Res ult Performing Organization Address [facility] Co de Phone Number [facility] [address] [place] [address], [place] [phone] * Free thyroxine with reflex to free triiodothyronine (06/24/2024 10:24 AM EDT) Free T4 1.53 0.70 - 1.80 ng/dL LAB CHEMISTRY METHOD 06/24/2024 2:11 PM EDT [facility] Blood Venous blood specimen / Unknown Venipuncture / Unknown 06/24/2024 10:24 AM EDT 06/24/2024 10:24 AM EDT Suzanne Owens MD LAB BLOOD ORDERABLES Final Res ult [facility] [address] [place] [address], [place] [phone] * Culture urine (06/24/2024 10:24 AM EDT) [facility] Culture, Urine No growth 06/25/2024 10:21 AM EDT [facility] Urine Urine specimen obtained by clean catch procedure / Unknown Non-blood Collection / Unknown 06/24/2024 10:24 AM EDT 06/24/2024 12:11 PM EDT Suzanne Owens MD LAB MICROBIOLOGY - GENERAL ORD ERABLES Final Result Performing Organization Address [facility]/ZIP Co de Phone Number [facility] [address] [place] [address], [place] [phone] * Triiodothyronine free (06/24/2024 10:24 AM EDT) [facility] T3, Free 371 230 - 420 pcg/dL LAB CHEMISTRY METHOD 06/24/2024 2:32 PM EDT [facility] Blood Venous blood specimen / Unknown Venipuncture / Unknown 06/24/2024 10:24 AM EDT 06/24/2024 10:24 AM EDT Suzanne Owens MD LAB BLOOD ORDERABLES Final Res ult [facility] [address] [place] [address], [place] [phone] * (ABNORMAL) Lipid panel (01/01/2024) [facility] LDL/HDL Ratio 3 0 - 4 Triglycerides 108 0 - 150 mg/dL Cholesterol 219(A) 0 - 200 mg/dL HDL 69 >=40 mg/dL LDL Cholesterol 129(A) 0 - 100 mg/dL Blood Venous blood specimen / Unknown us Historical Provider LAB BLOOD ORDERABLES Zenaida l Result * Depression Screening (12/21/2023) Depression Screening Abstracted Historical Provider HEALTH MAINTENANCE Final Result * DIAGNOSTIC MAMMOGRAPHY WITH CAD UNILATERAL (06/13/2022 10:13 AM EDT) Anatomical Region Laterality Modality Mammography 05/17/2022 10:1 6 AM EDT Narrative 06/13/2022 10:39 AM EDT This is a summary report. The complete report is available in the patient's medical record. If you cannot access the medical record, please contact the sending organization for a detailed fax or copy. Right breast mammogram, additional views. Limited right breast ultrasound. Spot compression tomosynthesis views of the right breast in CC projection was obtained to follow 05/12/2022 exam. The somewhat linear opacity in the lateral aspect of the right breast persists. No new suspicious abnormalities are identified. Limited ultrasound of the right breast was performed. There is a fluid-filled mildly dilated duct in the right breast at 9:00 which corresponds to the mammographic opacity. No cystic or solid masses or acoustic shadowing identified. Conclusions: Mildly prominent fluid-filled duct in the lateral right breast. Findings were explained to the patient. Follow-up mammogram at the time of the next annual screening. BI-RADS 2, benign findings. Procedure Note Jannette Vera MD - 04/11/2023 This is a summary report. The complete report is available in thepatient's medical record. If you cannot access the medical record, pleasecontact the sending organization for a detailed fax or copy. Right breast mammogram, additional views. Limited right breastultrasound. Spot compression tomosynthesis views of the right breast in CC projectionwas obtained to follow 05/12/2022 exam. The somewhat linear opacity in the lateral aspect of the right breastpersists. No new suspicious abnormalities are identified. Limited ultrasound of the right breast was performed. There is afluid-filled mildly dilated duct in the right breast at 9:00 whichcorresponds to the mammographic opacity. No cystic or solid masses oracoustic shadowing identified. Conclusions: Mildly prominent fluid-filled duct in the lateral rightbreast. Findings were explained to the patient. Follow-up mammogram atthe time of the next annual screening. BI-RADS 2, benign findings. 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
--- OUTSIDE RECORDS SUMMARY | 2024-09-09 14:45 | XMS_ITS | Clinical Summary ---
Author Organization [facility] Address [address] [place] [address] Care Team Providers Care Ekg Monitor Name Role Phone Suzanne Owens MD Primary Care Provider [phone] Allergies Active Allergy Reactions Criticality Noted Date Comments Sulfamethoxazole-Trimethop rim Other (See Comments) Medium 02/09/2021 Celecoxib Other (See Comments) Medium 11/10/2017 Codeine Other (See Comments) Medium 11/10/2017 Oxaprozin Other (See Comments) Medium 03/09/2010 Sulfamethoxazole Other (See Comments) Medium 10/20/2017 Other reaction(s): UNKNOWN Trimethoprim Other (See Comments) Medium 10/20/2017 Other reaction(s): UNKNOWN Medications Medication Sig Dispensed Refills Start Date End Date Status albuterol 108 (90 Base) MCG/ACT inhaler Inhale 1 puff into the lungs. 0 07/01/2019 Active citalopram (CeleXA) 40 MG tablet Take 1 tablet by mouth daily. 0 12/28/2020 Active Family History Medical History Relation Name Comments Cirrhosis Father Heart failure Father Hepatitis Father Cirrhosis Mother Relation Name Status Comments Father Alive Mother Social History Tobacco Use Types Packs/Day Years Used Date Smoking Tobacco: Never Smokeless Tobacco: Never Alcohol Use Standard Drinks/Week Comments Yes 0 (1 standard drink = 0.6 oz pur e alcohol) occasionally Sex and Gender Information Value Date Recorded Sex Assigned at Not on file Gender Identity Not on file Sexual Orientation Not on file Job Start Date Occupation Industry Not on file Not on file Not on file Last Filed Vital Signs Vital Sign Reading Time Taken Comments Blood Pressure - - Pulse 102 02/10/2021 12:06 PM EST Temperature 36.2 C (97.1 F) 02/10/2021 12:06 PM EST Respiratory Rate - - Oxygen Saturation 95% 02/10/2021 12:06 PM EST Inhaled Oxygen Concentration - - Weight 98 kg (216 lb) 02/09/2021 9:21 AM EST Height 154.9 cm (5' 1 ) 02/09/2021 9:21 AM EST Body Mass Index 40.81 02/09/2021 9:21 AM EST Plan of Treatment Health Maintenance Due Date Last Done Comments Hepatitis B Vaccines (1 of 3 - 3-dose series) 1972 Hepatitis C Screening 1972 COVID-19 Vaccine (#1) 1972 Depression Screening 1984 Preventative Health Evaluation 01/03/1990 Cervical Cancer Screening (P ap Smear) 01/03/1993 Colon Cancer Screening (Colonoscopy) 01/03/2017 Breast Cancer Screening (Mammogram) 01/03/2022 Shingrix-Zoster Vaccine (1 of 2) 01/03/2022 DTap / Tdap / Td (2 - Td or Tdap) 04/09/2024 015 Influenza Vaccine (#1) 2024 Pneumococcal Vaccine Aged Out No long er eligible based on patient's age to complete this topic RSV Ped < 20 months Aged Out No longe r eligible based on patient's age to complete this topic Care Teams Ekg Monitor Relationship Specialty Start Date End Date Suzanne Owens MD [address] [facility] [address] [place] [id number] PCP - General Internal Medicine 12/28/20
[2024-09-09] MEDS: oxyCODONE HCl Immed Release 5 MG TABLET PO (15:47)
[2024-09-09 15:51] VITALS: BP 120/64; PULSE 62; PULSE 66; RESP 18; O2SAT 98
--- NOTE | 2024-09-09 15:55 | PC.NURSE ---
54 F presents to ED with left arm pain that radiates to central chest. Pt denies any known cause or injury. RR even and unlabored, denies SOB. A+OX4 and ambulatory.
[2024-09-09 16:28] VITALS: PULSE 61; RESP 18; TEMP 36.8; O2SAT 99
[2024-09-09 17:01] LABS: Troponin-I High Sensitivity < 2.7 ng/L (<3.5-17.0)
[2024-09-09 17:50] VITALS: BP 114/66; PULSE 68; RESP 14; TEMP 36.8; O2SAT 98
== END 2024-09-09 17:52 | disposition home or self-care (01) ==
PROVIDERS: Nurse Practitioner Family; Physician Assistant; Emergency Provider Emergency Medicine; PCP Internal Medicine
DX: R07.89 Other chest pain (principal); M79.602 Pain in left arm
CPT/HCPCS: 36415; 71046; 80053; 81001; 81003; 84484; 85025; 87086; 93005; 99283; 99285

== ENCOUNTER → 2024-09-09 13:29 | Outpatient (BNV) | payer OTHER, SELFPAY | PROVIDERS: Emergency Provider Emergency Medicine; PCP Internal Medicine; Visit Provider Internal Medicine Cardiovascular Disease | DX: R94.31 Abnormal electrocardiogram [ECG] [EKG] (principal); R07.89 Other chest pain | CPT/HCPCS: 93010 ==

== ENCOUNTER → 2024-09-09 13:41 | Outpatient (BNV) | payer OTHER, SELFPAY | PROVIDERS: Emergency Provider Emergency Medicine; PCP Internal Medicine; Visit Provider Radiology Diagnostic Radiology | DX: R07.9 Chest pain, unspecified (principal) | CPT/HCPCS: 71046 ==